=== PATIENT | female | born 1960 | race African-American/Black ===

== ENCOUNTER 2019-07-25 07:51 | Inpatient (IN) | payer MEDICAID ==
[~2019-07-25] VITALS: Ht 175.3 cm; Wt 100.4 kg
[2019-07-25] MEDS ORDERED: ONDANSETRON HCL 4MG/2ML INJ IV STA (08:00)
[2019-07-25] MEDS ORDERED: MAGNESIUM 2 G PREMIX 50 ML IV ONE (08:00)
[2019-07-25] MEDS ORDERED: SODIUM CHLORIDE 0.9% 1,000 ML IV ONE (08:00)
[2019-07-25] MEDS ORDERED: IPRATROPIUM BROMIDE (0.02%) 0.5MG/2.5ML NEB HHN STA (08:00)
[2019-07-25] MEDS ORDERED: MORPHINE SULFATE 4 MG/ML CPJ (NOT FOR IM USE) IV STA (08:00)
[2019-07-25] MEDS ORDERED: METHYLPREDNISOLONE SOD SUCC 125 MG/2 ML VIAL IV STA (08:00)
[2019-07-25 08:27] LABS: CHLORIDE 104 mEq/L (98-107)
[2019-07-25] MEDS: ALBUTEROL (0.083%) 2.5MG/3ML NEB HHN SCH (08:30)
[2019-07-25 08:31] LABS: BASOPHILS % 0.8 % (0.0-2.0); EOSINOPHILS % 0.3 % (0.0-5.0); ETHANOL BLOOD < 10 mg/dL; HEMATOCRIT. 45.5 % (36.0-48.0); LYMPHOCYTES % 45.7 % (20.0-50.0); MEAN CORPUSCULAR VOLUME 99.8 fL (81.0-99.0); MEAN PLATELET VOLUME 10.5 fl (7.4-10.4); MONOCYTES % 8.9 % (2.0-8.0); NEUTROPHILS % 44.3 % (40.0-76.0); PLATELET 130 x1000/uL (130-400); RED BLOOD CELL COUNT 4.56 mill/uL (4.2-5.4)
[2019-07-25 08:32] LABS: PROTHROMBIN TIME 10.2 sec (9.6-11.0)
[2019-07-25] MEDS ORDERED: FUROSEMIDE 20MG/2ML VIAL IVP ONE (08:45)
[2019-07-25] MEDS ORDERED: IPRATROPIUM/ALBUTEROL 0.5-3(2.5)MG/3ML NEB HHN PRN (10:30)
[2019-07-25] MEDS ORDERED: CLONIDINE 0.1MG TABLET PO PRN (10:30)
[2019-07-25] MEDS ORDERED: ENOXAPARIN 40MG/0.4ML SYR SUBCUT SCH (10:30)
[2019-07-25] MEDS ORDERED: ONDANSETRON HCL 4MG/2ML INJ IV PRN (10:30)
[2019-07-25 11:02] LABS: PHOSPHORUS 3.4 mg/dL (2.5-4.9)
[2019-07-25] MEDS ORDERED: PIPERACILLIN/TAZ 3.375G PREMIX 50 ML IV SCH ×2 (11:15→18:00)
[2019-07-25] MEDS ORDERED: AMLODIPINE 2.5MG TABLET PO SCH (13:00)
[2019-07-25] MEDS: NITROGLYCERIN OINT 1GM/INCH UDPKT TD SCH ×2 (13:25→17:00)
[2019-07-25 14:00] VITALS: BP 123/68
[2019-07-25] MEDS: IPRATROPIUM/ALBUTEROL 0.5-3(2.5)MG/3ML NEB HHN SCH ×2 (15:53→21:15)
[2019-07-25 16:00] VITALS: BP 133/82
[2019-07-25] MEDS: FUROSEMIDE 40MG/4ML VIAL IV SCH (16:24)
[2019-07-25] MEDS: PIPERACILLIN/TAZOBACTAM 3.375 G in DEXT 5% WATER 100 ML IV SCH (17:00)
[2019-07-25 17:45] VITALS: BP 118/62
[2019-07-25] MEDS ORDERED: SIMV80TA90 PO (19:32)
[2019-07-25] MEDS ORDERED: HYDR-4134 PO (19:32)
[2019-07-25] MEDS ORDERED: DIPH25CA83 PO (19:32)
[2019-07-25] MEDS ORDERED: ATEN50TA PO (19:32)
[2019-07-25] MEDS ORDERED: HYDR12.54 PO (19:59)
[2019-07-25 20:00] VITALS: BP 152/86
[2019-07-25] MEDS ORDERED: NON FORMULARY PATIENT HOME MED XX SCH (20:00)
[2019-07-25] MEDS: ACETAMINOPHEN 325MG TABLET PO PRN (20:20)
[2019-07-25] MEDS: AMLODIPINE 2.5MG TABLET PO SCH (20:20)
[2019-07-25] MEDS: DIPHENHYDRAMINE 50MG CAPSULE PO SCH (20:20)
[2019-07-25] MEDS: ENOXAPARIN 30MG/0.3ML SYR SUBCUT SCH (20:20)
[2019-07-25] MEDS: ATORVASTATIN CALCIUM 40MG TABLET PO SCH (23:19)
[2019-07-26] VITALS (12 sets, daily range): BP systolic 96–124; BP diastolic 37–76
[2019-07-26] MEDS: NITROGLYCERIN OINT 1GM/INCH UDPKT TD SCH ×4 (01:30→22:00)
[2019-07-26] MEDS: PIPERACILLIN/TAZOBACTAM 3.375 G in DEXT 5% WATER 100 ML IV SCH ×4 (01:31→17:33)
[2019-07-26] MEDS: IPRATROPIUM/ALBUTEROL 0.5-3(2.5)MG/3ML NEB HHN SCH ×6 (02:09→21:17)
[2019-07-26] MEDS ORDERED: DEXTROSE 50% WATER 50ML SYRINGE IV PRN (02:45)
[2019-07-26] MEDS: BLOOD SUGAR DIAGNOSTIC STRIP TEST SCH ×4 (05:57→21:00)
[2019-07-26] MEDS: INSULIN LISPRO 100 UNITS/ML SUBCUT SCH ×4 (05:57→21:00)
[2019-07-26] MEDS: FUROSEMIDE 40MG/4ML VIAL IV SCH ×2 (08:04→17:18)
[2019-07-26] MEDS: HYDROCHLOROTHIAZIDE 12.5MG CAPSULE PO SCH (08:04)
[2019-07-26] MEDS: ENOXAPARIN 30MG/0.3ML SYR SUBCUT SCH ×2 (08:05→21:09)
[2019-07-26] MEDS: AMLODIPINE 2.5MG TABLET PO SCH ×2 (08:08→20:59)
[2019-07-26] MEDS ORDERED: ATENOLOL 50 MG TABLET PO SCH (09:00)
[2019-07-26 09:04] LABS: BASOPHILS % 0.3 % (0.0-2.0); HEMATOCRIT. 41.4 % (36.0-48.0); LYMPHOCYTES % 12.8 % (20.0-50.0); MEAN CORPUSCULAR HEMOGLOBIN 32.8 pg (28.0-32.0); MEAN CORPUSCULAR VOLUME 97.1 fL (81.0-99.0); MEAN PLATELET VOLUME 11.2 fl (7.4-10.4); MONOCYTES % 10.2 % (2.0-8.0); NEUTROPHILS % 76.7 % (40.0-76.0); PLATELET 141 x1000/uL (130-400); RED BLOOD CELL COUNT 4.27 mill/uL (4.2-5.4); RED CELL DISTRIBUTION WIDTH 15.3 % (11.6-14.6)
[2019-07-26 09:23] LABS: CHLORIDE 103 mEq/L (98-107)
[2019-07-26 09:30] LABS: LDL CHOLESTEROL 148 mg/dL (5-100)
[2019-07-26 09:32] LABS: HDL CHOLESTEROL 54 mg/dL (40-59)
[2019-07-26 14:06] LABS: T4 FREE 1.14 ng/dL (0.76-1.46)
[2019-07-26] MEDS: ACETAMINOPHEN 325MG TABLET PO PRN ×2 (14:37→21:09)
[2019-07-26] MEDS: LORATADINE 10MG TABLET PO SCH (14:39)
[2019-07-26] MEDS: MONTELUKAST SODIUM 10MG TABLET PO SCH (17:18)
[2019-07-26] MEDS: DIPHENHYDRAMINE 50MG CAPSULE PO SCH (21:08)
[2019-07-26] MEDS: ATORVASTATIN CALCIUM 40MG TABLET PO SCH (21:08)
[2019-07-26] MEDS: FLUTICASONE PROPIONATE 50MCG/SPRAY BOTTLE BOTHNSTRLS SCH (21:09)
[2019-07-26] MEDS: FAMOTIDINE 20MG TABLET PO SCH (21:09)
[2019-07-27] VITALS (12 sets, daily range): BP systolic 97–138; BP diastolic 52–77
[2019-07-27] MEDS: PIPERACILLIN/TAZOBACTAM 3.375 G in DEXT 5% WATER 100 ML IV SCH ×4 (00:39→17:20)
[2019-07-27] MEDS: IPRATROPIUM/ALBUTEROL 0.5-3(2.5)MG/3ML NEB HHN SCH ×6 (01:12→22:07)
[2019-07-27] MEDS: NITROGLYCERIN OINT 1GM/INCH UDPKT TD SCH ×3 (05:57→22:00)
[2019-07-27] MEDS: BLOOD SUGAR DIAGNOSTIC STRIP TEST SCH ×4 (05:58→21:03)
[2019-07-27] MEDS: INSULIN LISPRO 100 UNITS/ML SUBCUT SCH ×4 (05:58→21:00)
[2019-07-27 06:30] LABS: CHLORIDE 103 mEq/L (98-107)
[2019-07-27 07:08] LABS: BASOPHILS % 0.3 % (0.0-2.0); HEMATOCRIT. 41.5 % (36.0-48.0); HEMOGLOBIN. 14.1 g/dL (12.0-16.0); LYMPHOCYTES % 35.2 % (20.0-50.0); MEAN CORPUSCULAR HEMOGLOBIN 32.9 pg (28.0-32.0); MEAN CORPUSCULAR VOLUME 97.1 fL (81.0-99.0); MEAN PLATELET VOLUME 11.6 fl (7.4-10.4); MONOCYTES % 9.4 % (2.0-8.0); NEUTROPHILS % 55.1 % (40.0-76.0); PLATELET 129 x1000/uL (130-400); RED BLOOD CELL COUNT 4.28 mill/uL (4.2-5.4)
[2019-07-27] MEDS: FUROSEMIDE 40MG/4ML VIAL IV SCH (08:20)
[2019-07-27] MEDS: FLUTICASONE PROPIONATE 50MCG/SPRAY BOTTLE BOTHNSTRLS SCH (08:20)
[2019-07-27] MEDS: ENOXAPARIN 30MG/0.3ML SYR SUBCUT SCH ×2 (08:20→22:00)
[2019-07-27] MEDS: FAMOTIDINE 20MG TABLET PO SCH ×2 (08:21→21:59)
[2019-07-27] MEDS: AMLODIPINE 2.5MG TABLET PO SCH (08:21)
[2019-07-27] MEDS: LORATADINE 10MG TABLET PO SCH (08:21)
[2019-07-27] MEDS: HYDROCHLOROTHIAZIDE 12.5MG CAPSULE PO SCH (08:21)
[2019-07-27] MEDS: LOSARTAN POTASSIUM 25 MG TABLET PO SCH ×2 (12:00→22:00)
[2019-07-27] MEDS ORDERED: POTASSIUM CHLORIDE INJ 40 MEQ in DEXT 5% WATER 250 ML IV NR (14:30)
[2019-07-27] MEDS: PREDNISONE 20MG TABLET PO SCH (14:53)
[2019-07-27] MEDS ORDERED: POTASSIUM CHLORIDE 20MEQ TABLET SR PO NR (17:15)
[2019-07-27] MEDS: MONTELUKAST SODIUM 10MG TABLET PO SCH (17:20)
[2019-07-27] MEDS: AZELASTINE HCL 137MCG/SPRAY NASAL PUMP BOTHNSTRLS SCH (21:46)
[2019-07-27] MEDS: DIPHENHYDRAMINE 50MG CAPSULE PO SCH (21:59)
[2019-07-27] MEDS: ATORVASTATIN CALCIUM 40MG TABLET PO SCH (21:59)
[2019-07-28] VITALS (12 sets, daily range): BP systolic 91–127; BP diastolic 54–90
[2019-07-28] MEDS: PIPERACILLIN/TAZOBACTAM 3.375 G in DEXT 5% WATER 100 ML IV SCH ×2 (00:26→06:29)
[2019-07-28] MEDS: IPRATROPIUM/ALBUTEROL 0.5-3(2.5)MG/3ML NEB HHN SCH ×6 (00:58→21:04)
[2019-07-28] MEDS: NITROGLYCERIN OINT 1GM/INCH UDPKT TD SCH ×3 (05:53→21:18)
[2019-07-28] MEDS: BLOOD SUGAR DIAGNOSTIC STRIP TEST SCH ×5 (06:31→21:19)
[2019-07-28 06:45] LABS: BASOPHILS % 0.1 % (0.0-2.0); HEMATOCRIT. 45.5 % (36.0-48.0); HEMOGLOBIN. 15.3 g/dL (12.0-16.0); LYMPHOCYTES % 24.7 % (20.0-50.0); MEAN CORPUSCULAR HEMOGLOBIN 32.7 pg (28.0-32.0); MEAN CORPUSCULAR VOLUME 97.5 fL (81.0-99.0); MEAN PLATELET VOLUME 11.1 fl (7.4-10.4); MONOCYTES % 9.6 % (2.0-8.0); NEUTROPHILS % 65.6 % (40.0-76.0); PLATELET 124 x1000/uL (130-400); RED BLOOD CELL COUNT 4.66 mill/uL (4.2-5.4); RED CELL DISTRIBUTION WIDTH 15.1 % (11.6-14.6)
[2019-07-28 07:12] LABS: CHLORIDE 103 mEq/L (98-107)
[2019-07-28] MEDS: INSULIN LISPRO 100 UNITS/ML SUBCUT SCH ×4 (07:20→21:00)
[2019-07-28] MEDS: LOSARTAN POTASSIUM 25 MG TABLET PO SCH ×2 (08:15→20:36)
[2019-07-28] MEDS: PREDNISONE 20MG TABLET PO SCH (08:15)
[2019-07-28] MEDS: FAMOTIDINE 20MG TABLET PO SCH ×2 (08:15→20:35)
[2019-07-28] MEDS: LORATADINE 10MG TABLET PO SCH (08:15)
[2019-07-28] MEDS: ENOXAPARIN 30MG/0.3ML SYR SUBCUT SCH ×2 (08:24→16:21)
[2019-07-28] MEDS: AZELASTINE HCL 137MCG/SPRAY NASAL PUMP BOTHNSTRLS SCH ×2 (08:25→20:35)
[2019-07-28] MEDS ORDERED: POTASSIUM CHLORIDE 20MEQ TABLET SR PO NR (09:45)
[2019-07-28] MEDS: FUROSEMIDE 40MG TABLET PO SCH (12:19)
[2019-07-28] MEDS: CARVEDILOL 3.125 MG TABLET PO SCH ×2 (12:19→20:36)
[2019-07-28] MEDS: ACETAMINOPHEN 325MG TABLET PO PRN (16:27)
[2019-07-28] MEDS: MONTELUKAST SODIUM 10MG TABLET PO SCH (17:11)
[2019-07-28] MEDS: DIPHENHYDRAMINE 50MG CAPSULE PO SCH (20:35)
[2019-07-28] MEDS: ATORVASTATIN CALCIUM 40MG TABLET PO SCH (20:35)
[2019-07-29] VITALS (8 sets, daily range): BP systolic 89–125; BP diastolic 55–75
[2019-07-29] MEDS: IPRATROPIUM/ALBUTEROL 0.5-3(2.5)MG/3ML NEB HHN SCH ×3 (00:56→07:55)
[2019-07-29] MEDS: NITROGLYCERIN OINT 1GM/INCH UDPKT TD SCH (05:35)
[2019-07-29] MEDS: BLOOD SUGAR DIAGNOSTIC STRIP TEST SCH ×2 (05:35→11:50)
[2019-07-29] MEDS: INSULIN LISPRO 100 UNITS/ML SUBCUT SCH ×2 (05:35→12:20)
[2019-07-29 07:37] LABS: CHLORIDE 107 mEq/L (98-107)
[2019-07-29 07:46] LABS: BASOPHILS % 0.4 % (0.0-2.0); EOSINOPHILS % 0.3 % (0.0-5.0); HEMOGLOBIN. 14.7 g/dL (12.0-16.0); LYMPHOCYTES % 40.9 % (20.0-50.0); MEAN CORPUSCULAR HEMOGLOBIN 32.6 pg (28.0-32.0); MEAN CORPUSCULAR VOLUME 97.6 fL (81.0-99.0); MEAN PLATELET VOLUME 10.8 fl (7.4-10.4); MONOCYTES % 11.5 % (2.0-8.0); NEUTROPHILS % 46.9 % (40.0-76.0); PLATELET 117 x1000/uL (130-400); RED CELL DISTRIBUTION WIDTH 15.3 % (11.6-14.6)
[2019-07-29] MEDS: AZELASTINE HCL 137MCG/SPRAY NASAL PUMP BOTHNSTRLS SCH (08:19)
[2019-07-29] MEDS: FUROSEMIDE 40MG TABLET PO SCH (08:19)
[2019-07-29] MEDS: ENOXAPARIN 30MG/0.3ML SYR SUBCUT SCH (08:19)
[2019-07-29] MEDS: PREDNISONE 20MG TABLET PO SCH (08:19)
[2019-07-29] MEDS: CARVEDILOL 3.125 MG TABLET PO SCH (08:20)
[2019-07-29] MEDS: LORATADINE 10MG TABLET PO SCH (08:20)
[2019-07-29] MEDS: LOSARTAN POTASSIUM 25 MG TABLET PO SCH (08:20)
[2019-07-29] MEDS: FAMOTIDINE 20MG TABLET PO SCH (08:20)
[2019-07-29] MEDS ORDERED: COR3 PO (08:36)
[2019-07-29] MEDS ORDERED: MONT10TA21 PO (08:36)
[2019-07-29] MEDS ORDERED: AZEL137S7 BOTHNSTRLS (08:36)
[2019-07-29] MEDS ORDERED: P20 MT (08:36)
[2019-07-29] MEDS ORDERED: ALBU18HF2 IH (08:36)
[2019-07-29] MEDS ORDERED: FURO40TA5 PO (08:36)
[2019-07-29] MEDS ORDERED: NITR1OIN TD (08:36)
[2019-07-29] MEDS ORDERED: LOSA25TA3 PO (08:36)
[2019-07-29] MEDS ORDERED: FAMO20TA8 PO (08:36)
[2019-07-29] MEDS ORDERED: PANT40TA4 MT (08:36)
[2019-07-29] MEDS ORDERED: CLAR10 PO (08:36)
== END 2019-07-29 15:10 | disposition home or self-care (01) | DRG 194 ==
LOC: ER 07:51 → 3WST 09:59 → EDBEDREQ 10:01 → EDBEDREQSVC 10:01 → ENRESERV 12:33
PROVIDERS: ADMIT Internal Medicine; ATTEND Internal Medicine
PROC: 5A09357 Assistance with Respiratory Ventilation, Less than 24 Consecutive Hours, Continuous Positive Airway Pressure (ICD-10-PCS; principal; 2019-07-25)
DX: I11.0 Hypertensive heart disease with heart failure (principal); J96.01 Acute respiratory failure with hypoxia; E87.2 Acidosis; I50.43 Acute on chronic combined systolic (congestive) and diastolic (congestive) heart failure; E78.5 Hyperlipidemia, unspecified; I44.7 Left bundle-branch block, unspecified; E66.09 Other obesity due to excess calories; J44.1 Chronic obstructive pulmonary disease with (acute) exacerbation; J00 Acute nasopharyngitis [common cold]; F41.9 Anxiety disorder, unspecified; F17.210 Nicotine dependence, cigarettes, uncomplicated; E78.00 Pure hypercholesterolemia, unspecified; E11.65 Type 2 diabetes mellitus with hyperglycemia; J32.9 Chronic sinusitis, unspecified; I34.0 Nonrheumatic mitral (valve) insufficiency; I42.2 Other hypertrophic cardiomyopathy; D72.829 Elevated white blood cell count, unspecified; Z68.32 Body mass index [BMI] 32.0-32.9, adult; Z98.51 Tubal ligation status; Z82.49 Family history of ischemic heart disease and other diseases of the circulatory system
CPT/HCPCS: 36415; 71045; 80048; 80053; 80061; 80320; 82962; 83036; 83605; 83735; 83880; 84100; 84145; 84439; 84443; 84481; 84484; 85025; 93005; 93306; 93970; 94640; 94660; 96365; 99291; J1650; J1815; J1940; J2270; J2405; J2543; J2930; J3475; J3480; J7030; J7060; J7512; Q0163; G0480